=== PATIENT | female | born 1965 | race American Indian/Alaskan Native ===

== ENCOUNTER 2021-02-11 15:08 | Emergency (ER) | payer OTHER ==
[~2021-02-11] VITALS: Ht 149.9 cm; Wt 37.2 kg
== END 2021-02-11 18:37 | disposition home or self-care (01) ==
LOC: ER 15:08
DX: K05.312 Chronic periodontitis, localized, moderate (principal)

== ENCOUNTER 2024-01-19 09:01 | Emergency (ER) | payer OTHER ==
[~2024-01-19] VITALS: Wt 37.2 kg
[2024-01-19] MEDS ORDERED: ORPHENADRINE CITRATE 30 MG/ML AMPUL IM STA (09:39)
== END 2024-01-19 11:09 | disposition home or self-care (01) ==
LOC: ER 09:01
DX: M62.838 Other muscle spasm (principal)

== ENCOUNTER 2024-01-24 08:43 | Emergency (ER) | payer OTHER ==
[~2024-01-24] VITALS: Ht 147.3 cm; Wt 39.5 kg
[2024-01-24] MEDS ORDERED: METHYLPREDNISOLONE SOD SUCC 125 MG VIAL IM STA (09:35)
[2024-01-24] MEDS ORDERED: KETOROLAC TROMETHAMINE 30 MG VIAL IM STA (09:35)
== END 2024-01-24 09:56 | disposition home or self-care (01) ==
LOC: ER 08:43
DX: M54.6 Pain in thoracic spine (principal); R07.89 Other chest pain